=== PATIENT | female | born 1970 | race Caucasian/White ===

== ENCOUNTER → 2021-06-18 | Outpatient (CLI) | payer OTHER ==
--- NOTE | 2021-06-18 13:45 | KCIC ---
EXAM: Bilateral hands, 3 views. HISTORY: Pain. Rheumatoid arthritis markers. COMPARISON: None. FINDINGS: 3 views of both hands are obtained. There is no fracture, dislocation or subluxation. There is no erosion. There is a suspected bone island within the right scaphoid. There is no suspicious ly tic or sclerotic osseous lesion. There is no foreign body. IMPRESSION: No acute osseous finding. Electronically signed by: Nell Alvarado MD (06/18/2021 1:43 PM) [id number]
== END ==
LOC: KCIC 12:55
PROVIDERS: ATTEND Internal Medicine Rheumatology
DX: M79.642 Pain in left hand (principal); M79.641 Pain in right hand
CPT/HCPCS: 73130-50